=== PATIENT | male | born 1980 | race Caucasian/White ===

== ENCOUNTER → 2017-07-05 | Outpatient (CLI) | payer OTHER ==
[~2017-07-05] MED LIST: GABAPENTIN1 CRY PO; METAXALONE800 MG PO; SYNTHROID0.025 MG PO
--- NOTE | 2017-07-12 09:53 | RADIOLOGY REPORT PS360 ---
US ULTRASOUND THYROID PROCEDURE: Multiple sagittal & transverse ultrasound images of the thyroid. HISTORY: HISTORY of thyroid nodules and previous biopsies. 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 COMPARISON: No previous studies are available in PACS at this facility ----- FINDINGS: Very inhomogeneous stippled [place] cheese type character of thyroid bilaterally compatible with history thyroiditis. Diffuse enlargement it. Period slight decreased color Doppler flow bilaterally at this point. RIGHT LOBE: 4.1 cm length x 1.7 cm wide x 1.9 cm AP Nodule A: On an posterior aspect of lower pole there is a 8.2 mm x 8 x 5.7 mm solid nodule. Which is more evident than other areas of stippled density throughout remainder of the gland. LEFT LOBE: 4.9 cm length x 2.0 cm wide x 1.7 cm AP Nodule A: 1.4 cm length as 1 cm x 0.9 cm hypoechoic solid nodule upper pole left lobe. It Remainder the gland has the stippled [place] cheese appearance. ISTHMUS: Normal thickness 3.8 mm. Stippled inhomogeneous appearance seen here as well IMPRESSION Mildly enlarged gland bilaterally Diffuse stippled inhomogeneous [place] cheese appearance compatible with history thyroiditis Left lobe nodule: Hypoechoic solid-appearing nodule upper pole left lobe measuring up to 1.4 cm maximally Right lobe: smaller solid nodule. 8.2 mm maximum posterior lower pole
--- NOTE | 2017-07-12 09:53 | RADIOLOGY REPORT PS360 ---
US ULTRASOUND THYROID PROCEDURE: Multiple sagittal & transverse ultrasound images of the thyroid. HISTORY: HISTORY of thyroid nodules and previous biopsies. 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 COMPARISON: No previous studies are available in PACS at this facility ----- FINDINGS: Very inhomogeneous stippled [place] cheese type character of thyroid bilaterally compatible with history thyroiditis. Diffuse enlargement it. Period slight decreased color Doppler flow bilaterally at this point. RIGHT LOBE: 4.1 cm length x 1.7 cm wide x 1.9 cm AP Nodule A: On an posterior aspect of lower pole there is a 8.2 mm x 8 x 5.7 mm solid nodule. Which is more evident than other areas of stippled density throughout remainder of the gland. LEFT LOBE: 4.9 cm length x 2.0 cm wide x 1.7 cm AP Nodule A: 1.4 cm length as 1 cm x 0.9 cm hypoechoic solid nodule upper pole left lobe. It Remainder the gland has the stippled [place] cheese appearance. ISTHMUS: Normal thickness 3.8 mm. Stippled inhomogeneous appearance seen here as well IMPRESSION Mildly enlarged gland bilaterally Diffuse stippled inhomogeneous [place] cheese appearance compatible with history thyroiditis Left lobe nodule: Hypoechoic solid-appearing nodule upper pole left lobe measuring up to 1.4 cm maximally Right lobe: smaller solid nodule. 8.2 mm maximum posterior lower pole
== END ==
LOC: RAD 06-22 15:00
DX: E04.1 Nontoxic single thyroid nodule (principal)